=== PATIENT | female | born 1970 | race Caucasian/White ===

== ENCOUNTER 2017-01-02 13:05 | Emergency (ER) | payer OTHER ==
[~2017-01-02] VITALS: Ht 165.1 cm; Wt 131.2 kg
[2017-01-02] MEDS ORDERED: FLEXERIL10 MG PO (14:28)
[2017-01-02] MEDS ORDERED: NAPROSYN500 MG PO (14:28)
[2017-01-02 14:40] VITALS: BP 125/91
== END 2017-01-02 14:41 | disposition home or self-care (01) ==
LOC: EME 13:05
DX: M25.562 Pain in left knee (principal); S16.1XXA Strain of muscle, fascia and tendon at neck level, initial encounter; V98.8XXA Other specified transport accidents, initial encounter; M17.9 Osteoarthritis of knee, unspecified
CPT/HCPCS: 73564; 99281; 99283